=== PATIENT | female | born 1990 | race African-American/Black ===

== ENCOUNTER 2023-11-27 09:02 | Outpatient (CLI) | payer OTHER, SELFPAY | END 2023-11-27 09:03 | disposition home or self-care (01) | LOC: ANHAUDASC 09:03 | PROVIDERS: PCP Otolaryngology; Visit Provider Otolaryngology | DX: H90.42 Sensorineural hearing loss, unilateral, left ear, with unrestricted hearing on the contralateral side (principal); J30.2 Other seasonal allergic rhinitis; K11.21 Acute sialoadenitis; K11.23 Chronic sialoadenitis | CPT/HCPCS: 92557; 92567 ==